=== PATIENT | female | born 2000 | race Caucasian/White ===

== ENCOUNTER 2020-07-26 12:38 | Inpatient (IN) | payer OTHER ==
[2020-07-26] MEDS ORDERED: guaiFENesin 200 MG/10 ML 10 ML UNIT-DOSE CUPS PO PRN (14:14)
[2020-07-26] MEDS ORDERED: ACETAMINOPHEN 325 MG TABLET (FP) PO PRN (14:14)
[2020-07-26] MEDS ORDERED: P-EPHED 60MG/TRIPROLIDI 2.5MG TABLET PO PRN (14:14)
[2020-07-26] MEDS ORDERED: LOPERAMIDE HCL 2 MG CAPSULE PO PRN (14:14)
[2020-07-26] MEDS ORDERED: MAGNESIUM CITRATE 300 ML BOTTLE PO PRN (14:14)
[2020-07-26] MEDS ORDERED: MAGNESIUM HYDROX 2400MG/30ML ORAL SUSPENSION 30 ML CUP PO PRN (14:14)
[2020-07-26] MEDS ORDERED: IBUPROFEN 400 MG TABLET (FP) PO PRN (14:14)
[2020-07-26] MEDS ORDERED: MAG HYDROX/AL HYDROX/SIMETH 30 ML UNIT-DOSE CUP PO PRN (14:14)
[2020-07-26 14:57] VITALS: BMI 28.7
[2020-07-26 18:15] LABS: POTASSIUM 3.8 mmol/L (3.5-5.1)
[2020-07-26 18:22] LABS: BLOOD UREA NITROGEN 12.7 mg/dL (7-18)
[2020-07-26 18:24] LABS: HEMATOCRIT 40.3 % (32.4-45.2); MCH 27.3 pg (25.7-33.7); MCHC 32.3 g/dl (32.0-36.0); MEAN CELL VOLUME 84.6 fl (80-96); MEAN PLT VOLUME 10.6 fl (7.5-11.1); PLATELET COUNT 271 K/MM3 (134-434); RBC 4.76 M/mm3 (3.60-5.2); RDW 17.5 % (11.6-15.6); WHITE BLOOD COUNT 11.2 K/mm3 (4.0-10.0)
[2020-07-26 18:25] LABS: CREATININE 0.9 mg/dL (0.55-1.3)
[2020-07-26 18:26] LABS: BILIRUBIN,TOTAL 0.6 mg/dL (0.2-1); TOT PROT 7.8 g/dl (6.4-8.2)
[2020-07-26 19:08] LABS: SICKLE CELL SCREEN NEGATIVE (NEGATIVE)
[2020-07-26] MEDS: hydrOXYzine PAMOATE 25 MG CAPSULE (FP) PO SCH ×2 (19:16→21:39)
[2020-07-26] MEDS ORDERED: MELATONIN 5 MG TABLETS PO SCH (22:00)
[2020-07-26] MEDS ORDERED: THIAMINE HCL 100 MG TABLET (FP) PO SCH (22:00)
[2020-07-27] MEDS: hydrOXYzine PAMOATE 25 MG CAPSULE (FP) PO SCH ×2 (07:09→10:24)
[2020-07-27] MEDS ORDERED: PRENATAL VITAMINS W/ FOLIC ACID TABLET (FP) PO SCH (10:00)
[2020-07-27] MEDS ORDERED: hydrOXYzine PAMOATE 25 MG CAPSULE (FP) PO PRN (12:41)
[2020-07-27 19:07] VITALS: BP 100/64; PULSE 94; TEMP 97.5
== END 2020-07-27 19:07 | disposition left against medical advice (07) | DRG 770 ==
LOC: YASAS 12:38 → Y3E 14:51
PROVIDERS: ADMIT Allergy & Immunology; ATTEND Allergy & Immunology
PROC: HZ42ZZZ Group Counseling for Substance Abuse Treatment, Cognitive-Behavioral (ICD-10-PCS; principal; 2020-07-26)
DX: F10.29 Alcohol dependence with unspecified alcohol-induced disorder (principal); F14.29 Cocaine dependence with unspecified cocaine-induced disorder; F32.9 Major depressive disorder, single episode, unspecified; H53.009 Unspecified amblyopia, unspecified eye; Z62.810 Personal history of physical and sexual abuse in childhood; Z91.013 Allergy to seafood
CPT/HCPCS: 36415; 80053; 85027; 85660; 86780; 93005; 93010